=== PATIENT | female | born 1990 | race Two or more races ===

== ENCOUNTER → 2018-10-31 | Outpatient (CLI) | payer MEDICAID | END | disposition home or self-care (01) | LOC: WOUND 08:12 | PROVIDERS: ATTEND Internal Medicine | DX: S81.031A Puncture wound without foreign body, right knee, initial encounter (principal); S81.001A Unspecified open wound, right knee, initial encounter; V49.49XA Driver injured in collision with other motor vehicles in traffic accident, initial encounter; Y93.89 Activity, other specified; Y92.89 Other specified places as the place of occurrence of the external cause; Y99.8 Other external cause status; L02.415 Cutaneous abscess of right lower limb | CPT/HCPCS: 11042; 99215 ==

== ENCOUNTER → 2018-11-07 | Outpatient (CLI) | payer MEDICAID | END | disposition home or self-care (01) | LOC: WOUND 09:37 | PROVIDERS: ATTEND Internal Medicine | DX: S81.031D Puncture wound without foreign body, right knee, subsequent encounter (principal); L02.415 Cutaneous abscess of right lower limb; V49.49XD Driver injured in collision with other motor vehicles in traffic accident, subsequent encounter | CPT/HCPCS: 11042 ==

== ENCOUNTER → 2018-11-21 | Outpatient (CLI) | payer MEDICAID | END | disposition home or self-care (01) | LOC: WOUND 08:30 | PROVIDERS: ATTEND Internal Medicine | DX: S81.031D Puncture wound without foreign body, right knee, subsequent encounter (principal); L02.415 Cutaneous abscess of right lower limb; V49.49XD Driver injured in collision with other motor vehicles in traffic accident, subsequent encounter | CPT/HCPCS: 97597 ==